=== PATIENT | male | born 1980 | race African-American/Black ===

== ENCOUNTER 2020-05-16 09:34 | Outpatient (REF) | payer OTHER, SELFPAY ==
--- NOTE | 2020-05-16 09:30 | EMG_ITS ---
Left median and ulnar motor and sensory studies were performed. Left radial sensory study was performed and paraspinal muscles were tested. IMPRESSION: 1. [id number] left median neuropathy across carpal tunnel. 2. Mild left ulnar neuropathy across cubital tunnel. MD MONI Gilbert/SOFY / [phone]
== END 2020-05-16 09:35 | disposition home or self-care (01) ==
LOC: HO.NEURO 09:34
PROVIDERS: Visit Provider Physician Assistant
DX: R20.2 Paresthesia of skin (principal)
CPT/HCPCS: 95886; 95909

== ENCOUNTER 2020-05-16 10:16 | Outpatient (REF) | payer OTHER, SELFPAY ==
[2020-05-16 10:39] LABS: MANUAL DIFF FLAG NO
[2020-05-16 10:44] LABS: Basophils Percent Auto 1.1 % (0-2); Eosinophils Absolute Auto 0.1 X10*3/uL (0.0-0.4); Eosinophils Percent Auto 2.2 % (0-4); Hematocrit 46.6 % (42-52); Hemoglobin 14.9 g/dl (14.0-18.0); Imm Gran Abs Auto 0.01 X10*3/uL (0.00-0.03); Imm Gran Pct Auto 0.3 % (0.0-0.4); Lymphocytes Absolute Auto 1.4 X10*3/uL (1.2-4.9); Lymphocytes Percent Auto 37.5 % (20-40); Mean Corpuscular Hemoglobin 26.3 pg (27.0-33.0); Mean Corpuscular Volume 82.2 fL (80-98); Mean Platelet Volume 8.6 fL (9.4-12.4); Monocytes Absolute Auto 0.4 X10*3/uL (0.1-1.2); Neutrophils Absolute Auto 1.8 X10*3/uL (2.0-8.3); Neutrophils Percent Auto 48.9 % (45-73); Platelet Count 303 X10*3/uL (160-400); Red Blood Count 5.67 X10*6/uL (4.60-5.80); Red Cell Distribution Width 14.7 % (11.0-16.0); White Blood Count 3.6 X10*3/uL (4.8-10.8)
[2020-05-16 10:53] LABS: Estimated Average Glucose 111 mg/dL; Hemoglobin A1c % 5.5 %
[2020-05-16 11:11] LABS: Alanine Aminotransferase 69 U/L (0-40); Albumin Level 4.5 g/dL (3.5-5.0); Alkaline Phosphatase 70 U/L (39-117); Anion Gap 13 (12-20); Aspartate Amino Transferase 38 U/L (5-37); Bilirubin Total 0.6 mg/dL (0.0-1.0); Blood Urea Nitrogen 11 mg/dL (9-16); Calcium 9.2 mg/dL (8.4-10.2); Carbon Dioxide 29 mmol/L (22-29); Chloride 103 mmol/L (96-108); Estimated Glomerular Filt Rate > 60; Glucose Fasting 86 mg/dL (60-99); Potassium 4.5 mmol/l (3.3-5.1); Sodium 140 mmol/L (135-145); Total Protein 6.9 g/dL (6.5-8.0)
== END 2020-05-16 10:17 | disposition home or self-care (01) ==
LOC: HO.LAB 10:16
PROVIDERS: PCP Physician Assistant; Visit Provider Physician Assistant
DX: I10 Essential (primary) hypertension (principal); Z13.1 Encounter for screening for diabetes mellitus; R20.2 Paresthesia of skin
CPT/HCPCS: 36415; 80053; 83036; 85025

== ENCOUNTER → 2020-06-12 10:45 | Outpatient (BNVA) | payer OTHER, SELFPAY | PROVIDERS: Visit Provider Physician Assistant | DX: G56.12 Other lesions of median nerve, left upper limb (principal); G56.02 Carpal tunnel syndrome, left upper limb | CPT/HCPCS: 99202 ==

== ENCOUNTER 2020-06-20 12:57 | Outpatient (RCR) | payer MEDICAID, SELFPAY ==
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
== END 2020-07-30 11:34 | disposition other institution (70) ==
LOC: HO.OT 12:57
PROVIDERS: PCP Physician Assistant; Visit Provider Physician Assistant
DX: G56.02 Carpal tunnel syndrome, left upper limb (principal); G56.12 Other lesions of median nerve, left upper limb
CPT/HCPCS: 97033; 97110; 97166

== ENCOUNTER 2022-03-11 09:22 | Outpatient (REF) | payer OTHER, SELFPAY ==
--- NOTE | ~2022-03-11 | XR_ITS ---
EXAMINATION: XR ABDOMEN KUB CLINICAL INDICATION: Unremarkable. COMPARISON: None TECHNIQUE: AP view of the abdomen. FINDINGS: There is scattered gas and stool seen in colon without significant distention. The small bowel loops are normal caliber. There is no organomegaly. No radiopaque renal calculi seen. No gross bony abnormality seen. XR/XR abdomen 1V IMPRESSION: Mild constipation. No acute process.
[2022-03-11 10:44] LABS: Cholesterol 206 mg/dL; HDL Cholesterol 58 mg/dL; LDL Cholesterol Calculated 135 mg/dl; TSH reflex Free T4 0.89 uIU/mL (0.32-4.0); Triglycerides 65 mg/dL
== END 2022-03-11 09:23 | disposition home or self-care (01) ==
LOC: HO.XRAY 09:22
PROVIDERS: PCP Physician Assistant; Visit Provider Physician Assistant
DX: Z13.220 Encounter for screening for lipoid disorders (principal); Z13.29 Encounter for screening for other suspected endocrine disorder
CPT/HCPCS: 36415; 74018; 80061; 84443

== ENCOUNTER 2023-02-10 10:23 | Outpatient (AMB) | payer MEDICARE, MEDICAID, SELFPAY ==
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
[2023-02-10 10:35] VITALS: BP 140/76; PULSE 70; RESP 16; O2SAT 97; BMI 27.0
== END 2023-02-10 11:18 | disposition home or self-care (01) ==
PROVIDERS: Visit Provider Physician Assistant
DX: Z23 Encounter for immunization (principal)
CPT/HCPCS: 90471; 90686; 99396

== ENCOUNTER 2023-06-30 08:35 | Outpatient (AMB) | payer MEDICARE, MEDICAID, SELFPAY ==
[2023-06-30 08:38] VITALS: BMI 27.0
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
== END 2023-06-30 09:13 | disposition home or self-care (01) ==
PROVIDERS: PCP Physician Assistant; Visit Provider Orthopaedic Surgery
DX: G56.02 Carpal tunnel syndrome, left upper limb (principal); G56.22 Lesion of ulnar nerve, left upper limb; Z89.201 Acquired absence of right upper limb, unspecified level
CPT/HCPCS: 99213

== ENCOUNTER → 2023-06-30 08:35 | Outpatient (BNVA) | payer MEDICARE, MEDICAID, SELFPAY | PROVIDERS: PCP Physician Assistant; Visit Provider Orthopaedic Surgery | DX: G56.02 Carpal tunnel syndrome, left upper limb (principal); R20.0 Anesthesia of skin; Z89.201 Acquired absence of right upper limb, unspecified level | CPT/HCPCS: 99212 ==

== ENCOUNTER 2023-07-22 09:48 | Outpatient (AMB) | payer MEDICARE, MEDICAID, SELFPAY ==
[2023-07-22 10:13] VITALS: BP 120/70; PULSE 65; O2SAT 99; BMI 28.5
--- NOTE | 2023-07-22 10:13 | A.OFFPC_ITS ---
Vital Signs 07/22/23 10:13 Height 5 ft 10.87 in Weight 203 lb 8 oz BMI 28.5 BP 120/70 Blood Pressure Location Lt brachial Position Sitting Pulse 65 Pulse Source Pulse Oximeter Pulse Oximetry (%) 99 Oxygen Delivery Method Room Air Intake Visit Reasons: bladder pain for the past three wks Intake Note: The patient has been experiencing right lower quadrant pain intermittently for the past two weeks. Area Secretary Required: Yes Area Secretary Language: Micronesian Accompanied by: Self / Same As Patient Allergies No Known Allergies Allergy (Verified 02/10/23 11:00) Medication List - Last Reconciled 07/22/23 by Kayode Suresh PA-C amitriptyline 50 mg PO BEDTIME diclofenac sodium 50 mg PO BID PRN 15 days gabapentin 800 mg PO TID 30 days sertraline 100 mg PO DAILY tizanidine 2 mg PO BID PRN trazodone 75 - 150 mg PO BEDTIME PRN Tobacco use date assessed: 07/22/23 Dental Screening Dental Screen Date: 07/22/23 Did you have a dental visit in the last 12 months?: No Did you have a dental problem in the last 6 months where you did not have access to dental care?: No Was dental information given to patient?: Patient has dentist HPI bladder pain for the past three wks HPI Details Patient is a 42-year-old male here today for problem visit. He has been experiencing left lower quadrant abdominal pain over the last 2 weeks. He denies any nausea, vomiting, diarrhea, fevers or constant abdominal pain.. He does admit to some constipation as of late. Has not tried any dgfz-qlc-fvlygcg constipation medication. FORMERLY [facility], [facility] Medical History (Updated 07/22/23 @ 10:28 by Kayode Suresh PA-C) Polyarthralgia Elevated liver enzymes Surgical History History of surgery on arm Family History Father Heart disease (organic) Mother No problems noted. Social History Housing: House Alcohol intake: never Patient Tobacco Use Status: Never used Tobacco Tobacco use type: Cigarette e-Cigarette/Vaping Use: Never Used Second Hand Smoke Exposure: No service: No Current occupational status: unemployed and disabled Cognitive needs: No Hearing needs: No Vision needs: No Questionnaire PHQ-9 Over the last 2 weeks, how often have you been bothered by any of the following problems? 1. Little interest or pleasure in doing things: not at all 2. Feeling down, depressed, or hopeless: not at all 3. Trouble falling or staying asleep, or sleeping too much: not at all 4. Feeling tired or having little energy: not at all 5. Poor appetite or overeating: not at all 6. Feeling bad about yourself - or that you are a failure or have let yourself or your family down: not at all 7. Trouble concentrating on things, such as reading the newspaper or watching television: not at all 8. Moving or speaking so slowly that other people could have noticed. Or the opposite - being so fidgety or restless that you have been moving around a lot more than usual: not at all 9. Thoughts that you would be better off or of hurting yourself in some way: not at all Total score: 0 Depression Screening Interpretation: Negative Depression Screening Done: Yes 88767 - PHQ-9 Billing: Yes Source: Developed by Drs. Jin Lopez, Blaire Villatoro, Jarret Mendes and colleagues, with an educational edilson from [email or web address]. Thrive Questionnaire Date Thrive assessed: 07/22/23 I am a: Patient What is your living situation today?: I have a steady place to live Within the past 12 months, did the food you bought not last and you didn't have the money to get more?: Never true Within the past 12 months, did you worry whether your food would run out before you got money to buy more?: Never true Do you have trouble paying for medicines?: No Do you have trouble getting transportation to medical appointments?: No Do you have trouble paying your heating and electricity bill?: No Do you have trouble taking care of your child, family member or friend?: No Do you have trouble with day-to-day activities such as bathing, preparing meals, shopping, managing finances, etc.?: No Are you currently unemployed and looking for a job?: No Are you interested in more education?: No Please select the resources that you would like help with: None Currently or been in a relationship where the following occur: no concerns reported THRIVE Score: 0 AUDIT C Alcohol Use Questionnaire (AUDIT-C) 1. How often do you have a drink containing alcohol?: Never 3. How often do you have six or more drinks on one occasion?: Never Total Score: 0 DANGELO-7 AMB Questionnaire DANGELO-7 Date DANGELO - 7 assessed: 07/22/23 Feeling nervous, anxious, or on edge: 0 = Not at all Not being able to stop or control worryin = Not at all Worrying too much about different things: 0 = Not at all Trouble relaxin = Not at all Being so restless that it is hard to sit still: 0 = Not at all Becoming easily annoyed or irritable: 0 = Not at all Feeling afraid as if something awful might happen: 0 = Not at all Total DANGELO-7 score (0-4 normal; 5-9 mild; 10-14 moderate; 15-21 severe): 0 Source: Developed by Drs. Jin Lopez, Blaire Villatoro, Jarret Mendes and colleagues, with an educational edilson from [email or web address]. DANGELO-7 Assessment Billing DANGELO-7 Assessment Tool: DANGELO-7 Assessment 67924 Review of Systems Const Denies headache(s) Eyes Denies loss of vision ENT Denies vertigo, Denies dizziness, Denies headache(s) and Denies sore throat Card Denies chest pain, Denies leg edema and Denies lightheadedness Resp Denies cough, Denies hemoptysis and Denies wheezing GI Reports abdominal pain, Denies melena, Reports constipation, Denies diarrhea and Denies vomiting Denies dysuria, Denies urinary frequency and Denies urinary urgency Musc Denies arthralgias, Denies joint swelling, Denies numbness and Denies tingling Neuro Denies Abnormal speech present, Denies behavioral changes, Denies vertigo, Denies dizziness, Denies headache(s), Denies loss of vision, Denies memory loss, Denies numbness and Denies tingling Psych Denies anxiety, Denies behavioral changes, Denies depression, Denies memory loss and Denies panic attacks Yusuf/Lymph Denies easy bleeding and Denies easy bruising Aller/Immun Denies wheezing Physical exam (Primary Care) Vital Signs: Last Vital Signs Pulse 65 07/22/23 10:13 BP 120/70 07/22/23 10:13 Pulse Ox 99 07/22/23 10:13 Oxygen Delivery Method Room Air 07/22/23 10:13 BMI result Body Mass Index 28.5 Tobacco/Smoking Status: Tobacco use Status Tobacco use date assessed 02/04/22 07/22/23 10:13 Patient Tobacco Use Status Never used Tobacco 07/22/23 10:13 Tobacco use type Cigarette 07/22/23 10:13 e-Cigarette/Vaping Use Never Used 07/22/23 10:13 Depression Screening Interpretation: Negative Thrive Assessment: Date of Thrive Assessment Date Thrive assessed 02/10/23 07/22/23 10:13 Currently or been in a relationship where the following occur: no concerns reported Const General: healthy appearing, no acute distress, alert and awake Nutritional Appearance: well nourished Orientation/consciousness: oriented to person, oriented to place and oriented to time HENMT Ears: TM's normal bilaterally General nose exam: Normal nasal mucous membranes and turbinates present Eyes Conjunctivae: conjunctivae normal Sclerae: sclerae normal Pupils: Equal, round and reactive pupils present Neck Neck: Yes no lymphadenopathy and Yes no JVD Thyroid: Thyroid normal Carotids: no bruits Resp Effort & Inspection: normal respiratory effort and not tachypneic Auscultation: no crackles, no rales, no rhonchi and no wheezes Cardio Rate: regular rate Rhythm: regular rhythm Heart sounds: no murmurs and normal S1 and S2 GI Palpation (GI): Soft to palpation, nontender, no hepatomegaly and no splenomegaly Auscultation: normal bowel sounds Skin General skin exam: no rashes or lesions noted and dry skin Neuro General: oriented to person, oriented to place and oriented to time Cranial nerves: Yes Equal, round and reactive pupils present Speech: No Abnormal speech present Gait exam (Neuro): Normal gait present Motor exam (neuro): no tremor noted Extrem Right upper extremity: full ROM Left upper extremity: full ROM Right lower extremity: full ROM; no edema Left lower extremity: full ROM; no edema Psych Mental Status: mental status grossly normal Speech and movement: Normal speech and movement present Affect: normal affect Attitude: cooperative Thought process: Normal thought process present Assessment and Plan Assessment & Plan (1) RLQ abdominal pain: Code(s): R10.31 - Right lower quadrant pain Plan: Patient reports a 2 week history of intermittent right lower abdominal pain. Physical exam without any abdominal guarding or pain to deep palpation. Will send for ultrasound of the right lower quadrant to evaluate for appendicitis. He does report having some constipation and will set him up with powder MiraLax to use over the next 2 weeks. Advised to increase fluid intake. Orders: Orders Lipid Panel Today E78.9 - Disorder of lipoprotein metabolism, unspecified, Z13.1 - Encounter for screening for diabetes mellitus Comprehensive Beatrice. Panel Fast Today E78.9 - Disorder of lipoprotein metabolism, unspecified, Z13.1 - Encounter for screening for diabetes mellitus US appendix Today R10.31 - Right lower quadrant pain Medications: New polyethylene glycol 3350 (Miralax) Makes 17 g packet in to 8 oz of water and drink daily 17 grams PO DAILY 14 days 14 ea 0RF Constipation R10.31 - Right lower quadrant pain Coding Level of Care Code Est Pt Level 3 (07260) Diagnoses RLQ abdominal pain R10.31 Additional Codes DANGELO-7 Assessment Billing - DANGELO-7 Assessment Tool: DANGELO-7 Assessment 01226 ([id number])
== END 2023-07-22 10:38 | disposition home or self-care (01) ==
PROVIDERS: PCP Physician Assistant; Visit Provider Physician Assistant
DX: R10.31 Right lower quadrant pain (principal)
CPT/HCPCS: 99213

== ENCOUNTER 2023-07-23 13:40 | Outpatient (REF) | payer MEDICARE, MEDICAID, SELFPAY ==
--- NOTE | ~2023-07-23 | US_ITS ---
STUDY: Right lower quadrant ultrasound. INDICATION: Right lower quadrant pain. COMPARISON: None TECHNIQUE: Real-time ultrasound was used to scan the right lower quadrant and permanent documented images obtained. FINDINGS: No blind ending, tubular fluid-filled noncompressible structure identified in the right lower quadrant. No free fluid or fluid collections. US/US appendix IMPRESSION: No sonographic evidence of acute appendicitis. Absence of findings does not exclude that entity. If there is a persistent clinical concern, consider cross-sectional imaging such as CT.
== END 2023-07-23 13:41 | disposition home or self-care (01) ==
LOC: HO.US 13:40
PROVIDERS: PCP Physician Assistant; Visit Provider Physician Assistant
DX: R10.31 Right lower quadrant pain (principal)
CPT/HCPCS: 76705

== ENCOUNTER 2023-08-11 09:58 | Outpatient (AMB) | payer MEDICARE, MEDICAID, SELFPAY ==
[2023-08-11 10:17] VITALS: BMI 28.4
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
== END 2023-08-11 11:01 | disposition home or self-care (01) ==
PROVIDERS: PCP Physician Assistant; Visit Provider Orthopaedic Surgery
DX: G56.02 Carpal tunnel syndrome, left upper limb (principal); G56.22 Lesion of ulnar nerve, left upper limb; Z89.201 Acquired absence of right upper limb, unspecified level
CPT/HCPCS: 99214

== ENCOUNTER → 2023-08-11 09:58 | Outpatient (BNVA) | payer MEDICARE, MEDICAID, SELFPAY | PROVIDERS: PCP Physician Assistant; Visit Provider Orthopaedic Surgery | DX: G56.02 Carpal tunnel syndrome, left upper limb (principal); G56.22 Lesion of ulnar nerve, left upper limb; Z89.201 Acquired absence of right upper limb, unspecified level | CPT/HCPCS: 99212 ==

== ENCOUNTER 2023-11-22 10:11 | Day surgery (SDC) | payer MEDICARE, MEDICAID, SELFPAY ==
[2023-11-22 10:53] VITALS: BMI 26.8
--- NOTE | 2023-11-22 12:35 | MHC.SHP ---
Pre-Procedural Eval Section A - 24 Hr Update-Section A only Date of Service: 11/22/23 The patient is an INPATIENT: No Changes since office visit: No Cold of Flu in the past 2 weeks, No New Medical Problems, No Changes in Medication and No Patient answered all questions The patient has been examined within 24 hours of the surgical procedure. The History & Physical has been completed within 30 days and I have reviewed it.: Yes Section B - Complete if H&P > 30 days Chief Complaint: Carpal tunnel syndrome, left upper limb Allergies: Allergies Allergy/AdvReac Type Severity Reaction Status Date / Time No Known Allergies Allergy Verified 11/22/23 10:54 Exam Exam Comment: Left carpal tunnel syndrome for left carpal tunnel release Patient reports that he started to have more numbness and tingling in the small finger, but perhaps 4 times a week. I educated him about cubital tunnel syndrome again. He understands that if this worsens he may in the future benefit from a left cubital tunnel release. Plan Diagnosis/Plan: Unchanged I have reviewed the history and physical and performed a pertinent physical examination on my patient. No changes have occurred unless specified. Time Spent With Patient Time: Total time managing care of this patient today ____ minutes.
--- NOTE | 2023-11-22 12:36 | P.OP_ITS ---
Operative Note Operative Note Date of Service: 11/22/23 Narrative: Preop diagnosis: 1. Left Carpal tunnel syndrome Postop diagnosis: same Procedure: 1. Left Carpal tunnel release Surgeon: Bailey Peterson MD Social Worker Psychiatric: None Anesthesia: local block using 1% lidocaine with epinephrine Findings: Thickened transverse carpal ligament. EBL: Less than 5 mL Specimens: None Complications: None Disposition: Brought to recovery room in stable condition Plan: Follow-up for 10-14 days for wound check and suture removal The patient is a high right upper extremity amputee. He says that he has plenty of help at home. Indications: The patient is 43 years old, with left carpal tunnel syndrome that has been unresponsive to nonoperative management. The risks and benefits of operative treatment including but not limited to risk of damage to blood vessels, nerves, tendons, infection, persistent pain, persistent symptoms, or possible need for additional surgery were discussed with the patient and the patient wishes to proceed with surgery. Procedure: Once consent was obtained a local block was performed using a combination of 1% lidocaine with epinephrine. The patient was then brought back to the operating suite and placed on the operative table in supine position. The left upper extremity was prepped and draped in a standard surgical fashion. Once assured that we had a good block, a 2.0 cm longitudinal incision was made centered over the carpal tunnel. The incision was made through the skin to the subcutaneous tissues using a #15 blade. Dissection was made down to the level of the transverse carpal ligament with care being taken to protect the palmar cutaneous nerve. Once the transverse carpal ligament was clearly visualized, a longitudinal incision was made in the transverse carpal ligament 1st using a #15 blade, then using tenotomy scissors under direct visualization. Care was taken to look for and protect the motor branch of the median nerve when seen in this area. Once satisfied with our carpal tunnel release the wound was copiously irrigated with normal saline and hemostasis was obtained with a brief period of local pressure. The skin edges were reapproximated with some 5.0 nylon suture material and a sterile dressing was applied. The patient appears to have tolerated the procedure well and with no complications. All digits were well vascularized at the conclusion of the case.
[2023-11-22 13:42] VITALS: BP 156/73
== END 2023-11-22 13:43 | disposition home or self-care (01) ==
PROVIDERS: PCP Physician Assistant; Visit Provider Orthopaedic Surgery
PROC: (CPT 64721; principal; 2023-11-22 11:30)
DX: G56.02 Carpal tunnel syndrome, left upper limb (principal); M25.50 Pain in unspecified joint; R74.8 Abnormal levels of other serum enzymes; Z89.221 Acquired absence of right upper limb above elbow; Z87.828 Personal history of other (healed) physical injury and trauma; Z98.890 Other specified postprocedural states; Z56.0 Unemployment, unspecified
CPT/HCPCS: 64721; J0171

== ENCOUNTER → 2023-11-22 10:11 | Outpatient (BNV) | payer MEDICARE, MEDICAID, SELFPAY | PROVIDERS: PCP Physician Assistant; Visit Provider Orthopaedic Surgery | DX: G56.02 Carpal tunnel syndrome, left upper limb (principal) | CPT/HCPCS: 64721 ==

== ENCOUNTER 2023-12-08 12:13 | Outpatient (AMB) | payer MEDICARE, MEDICAID, SELFPAY ==
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
== END 2023-12-08 13:07 | disposition home or self-care (01) ==
PROVIDERS: PCP Physician Assistant; Visit Provider Orthopaedic Surgery
DX: G56.02 Carpal tunnel syndrome, left upper limb (principal); G56.22 Lesion of ulnar nerve, left upper limb; Z89.201 Acquired absence of right upper limb, unspecified level
CPT/HCPCS: 99024

== ENCOUNTER → 2023-12-08 12:13 | Outpatient (BNVA) | payer MEDICARE, MEDICAID, SELFPAY | PROVIDERS: PCP Physician Assistant; Visit Provider Orthopaedic Surgery | DX: Z48.811 Encounter for surgical aftercare following surgery on the nervous system (principal); Z86.69 Personal history of other diseases of the nervous system and sense organs; Z89.201 Acquired absence of right upper limb, unspecified level | CPT/HCPCS: 99212 ==

== ENCOUNTER 2024-02-15 10:36 | Outpatient (AMB) | payer MEDICARE, MEDICAID, SELFPAY ==
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
[2024-02-15 10:43] VITALS: BP 140/80; PULSE 71; O2SAT 99; BMI 26.8
== END 2024-02-15 11:19 | disposition home or self-care (01) ==
LOC: HO.HMCH 10:37
PROVIDERS: PCP Physician Assistant; Visit Provider Physician Assistant
DX: Z00.00 Encounter for general adult medical examination without abnormal findings (principal); G54.6 Phantom limb syndrome with pain; F33.0 Major depressive disorder, recurrent, mild; G56.22 Lesion of ulnar nerve, left upper limb; E78.9 Disorder of lipoprotein metabolism, unspecified; F41.1 Generalized anxiety disorder; R21 Rash and other nonspecific skin eruption; Z89.201 Acquired absence of right upper limb, unspecified level

== ENCOUNTER → 2024-02-15 10:36 | Outpatient (BNVA) | payer MEDICARE, MEDICAID, SELFPAY | PROVIDERS: PCP Physician Assistant; Visit Provider Physician Assistant | DX: Z00.01 Encounter for general adult medical examination with abnormal findings (principal); Z23 Encounter for immunization; R21 Rash and other nonspecific skin eruption; G54.6 Phantom limb syndrome with pain; F33.0 Major depressive disorder, recurrent, mild; G56.22 Lesion of ulnar nerve, left upper limb; E78.9 Disorder of lipoprotein metabolism, unspecified; F41.1 Generalized anxiety disorder; Z89.201 Acquired absence of right upper limb, unspecified level | CPT/HCPCS: 90471; 90656; 96127; 99396 ==

== ENCOUNTER 2025-02-15 09:50 | Outpatient (REF) | payer MEDICARE, MEDICAID, SELFPAY ==
[2025-02-15 13:08] LABS: Hematocrit 44.8 % (42.0-52.0); Hemoglobin 14.4 g/dl (14.0-18.0); Mean Corpuscular HGB Conc 32.1 g/dl (31.0-36.0); Mean Corpuscular Hemoglobin 26.3 pg (27.0-33.0); Mean Corpuscular Volume 81.9 fL (80.0-98.0); NRBC Abs Auto 0.000 X10*3/uL (0.0-0.012); NRBC Pct Auto 0.0 /100WBC (0.0-0.2); Platelet Count 278 X10*3/uL (160-400); Red Blood Count 5.47 X10*6/uL (4.60-5.80); White Blood Count 4.4 X10*3/uL (4.8-10.8)
[2025-02-15 13:43] LABS: Alanine Aminotransferase 35 U/L (0-40); Albumin Level 4.8 g/dL (3.5-5.0); Alkaline Phosphatase 69 U/L (39-117); Anion Gap 11 (12-20); Aspartate Amino Transferase 29 U/L (5-37); Blood Urea Nitrogen 19 mg/dL (9-16); Calcium 9.4 mg/dL (8.4-10.2); Carbon Dioxide 27 mmol/L (22-29); Chloride 107 mmol/L (96-108); Cholesterol 224 mg/dL (<200); Estimated Glomerular Filt Rate > 60; HDL Cholesterol 62 mg/dL (>40); Potassium 4.1 mmol/L (3.3-5.1); Sodium 141 mmol/L (135-145); Total Protein 7.1 g/dL (6.5-8.0); Triglycerides 77 mg/dL (<150)
--- OUTSIDE RECORDS SUMMARY | 2025-02-15 14:58 | XMS_ITS | Clinical Summary ---
Author Organization [facility] [place] [address] Care Team Providers Care Research Attorney Name Role Phone Unavailable Primary Care Provider Unavailabl e Social History Tobacco Use Types Packs/Day Years Used Date Smoking Tobacco: Never Assessed Sex and Gender Information Value Date Recorded Sex Assigned at Not on file Legal Sex Male 12:19 AM EST Gender Identity Not on file Sexual Orientation Not on file Plan of Treatment Health Maintenance Due Date Last Done Comments DTaP,Tdap,and Td Vaccines (1 - Tdap) 08/12/1999 Hepatitis B Vaccines (1 of 3 - 19+ 3-dose series) 08/12/1999 HPV Vaccines (1 - 3-dose SCD M series) 08/12/2007 Cholesterol Screening (Lipid Panel) 01/27/2024 HIV Screening 01/27/2024 Hepatitis C Screening 01/27/2024 Social Influencers of Health Screening 01/27/2024 Depression Screening 04/19/2024 COVID-19 Vaccine ( - 2023-2 5 season) 2024 Influenza Vaccine (#1) 2024 RSV Immunization Adult Patie nts (1 - 1-dose 75+ series) 08/12/2055 HIB Vaccines Aged Out No longer eligi ble based on patient's age to complete this topic Hepatitis A Vaccines Aged Out No long er eligible based on patient's age to complete this topic IPV Vaccines Aged Out No longer eligi ble based on patient's age to complete this topic MMR Vaccines Aged Out No longer eligi ble based on patient's age to complete this topic Meningococcal ACWY Vaccine Aged Out N o longer eligible based on patient's age to complete this topic Meningococcal B Vaccine Aged Out No l onger eligible based on patient's age to complete this topic Pneumococcal Vaccine: Pediat rics (0 to 5 Years) and At-Risk Patients (6 to 49 Years) Aged Out No longer eligible b ased on patient's age to complete this topic RSV Immunization Patients Un jeet 20 months Aged Out No longer eligible b ased on patient's age to complete this topic Varicella Vaccines Aged Out No longer eligible based on patient's age to complete this topic
== END 2025-02-15 09:51 | disposition home or self-care (01) ==
LOC: HO.LAB 09:50
PROVIDERS: PCP Physician Assistant; Visit Provider Physician Assistant
DX: Z00.00 Encounter for general adult medical examination without abnormal findings (principal); Z23 Encounter for immunization; F33.0 Major depressive disorder, recurrent, mild; F41.1 Generalized anxiety disorder; E78.9 Disorder of lipoprotein metabolism, unspecified; G54.6 Phantom limb syndrome with pain; S46.811D Strain of other muscles, fascia and tendons at shoulder and upper arm level, right arm, subsequent encounter; Z79.899 Other long term (current) drug therapy
CPT/HCPCS: 36415; 80053; 80061; 85027; 90471; 90656; 96127; 99396

== ENCOUNTER 2025-02-15 09:50 | Outpatient (AMB) | payer MEDICARE, MEDICAID, SELFPAY ==
[2025-02-15 10:07] VITALS: BP 104/80; PULSE 66; O2SAT 98; BMI 25.4
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
--- OUTSIDE RECORDS SUMMARY | 2025-02-15 11:35 | XMS_ITS | Clinical Summary ---
Author Organization [facility] Address [address] [place] [address] Care Team Providers Care Powertrain Control Systems Engineer Name Role Phone Radha Arriaga MD Primary Care Provider [phone] Allergies No known active allergies Medications No known medications Social History Tobacco Use Types Packs/Day Years Used Date Smoking Tobacco: Never Alcohol Use Standard Drinks/Week Comments Not Asked 0 (1 standard drink = 0.6 oz pur e alcohol) Sex Assigned at Date Recorded Not on file Last Filed Vital Signs Vital Sign Reading Time Taken Comments Blood Pressure 112/65 05/15/2015 10:28 AM EST Pulse 70 05/15/2015 10:28 AM EST Temperature 36.9 C (98.4 F) 05/15/2015 10:28 AM EST Respiratory Rate 16 05/15/2015 10:28 AM EST Oxygen Saturation - - Inhaled Oxygen Concentration - - Weight 93.7 kg (206 lb 8 oz) 05/15/2015 10:28 AM EST Height 180.3 cm (5' 11 ) 05/15/2015 10:28 AM EST Body Mass Index 28.8 05/15/2015 10:28 AM EST Plan of Treatment Health Maintenance Due Date Last Done Comments Covid-19 Vaccine (#1) 02/10/1981 TOBACCO CHECK/ADVISE 1998 DTAP/TDAP/TD (1 - Tdap) 08/12/1999 CHOLESTEROL SCREENING 2000 BASELINE HEALTH EXAM 40-64 2020 BMI CHECK/ADVISE 04/19/2024 INFLUENZA (#1) 2024 PNEUMOCOCCAL VACCINE FOR HIGH RISK PATIENTS (#1) 08/11 Care Teams Powertrain Control Systems Engineer Relationship Specialty Start Date End Date Radha Arriaga MD [address] [place] [id number] PCP - General Internal Medicine 05/21/15
--- OUTSIDE RECORDS SUMMARY | 2025-02-15 11:35 | XMS_ITS | Encounter Summary ---
Author Organization [facility] Address [address] [place] [address] Care Team Providers Care Psychometrist Name Role Phone [facility], Pcp Primary Care Provider Radha Armendariz MD Primary Care Provider [phone] Reason for Visit * Reason Onset Date Comments Follow-up Appt Unavailable 05/15/2015 Encounter Details Date Type Department Care Team Description 05/15/2015 Telephone Adult Medicine [facility] [address] [place] [address] [phone] Radha Mejia MD [address] [place] [address] [phone] Follow-up Appt Unavailable Social History Tobacco Use Types Packs/Day Years Used Date Smoking Tobacco: Never Alcohol Use Standard Drinks/Week Comments Not Asked 0 (1 standard drink = 0.6 oz pur e alcohol) Sex Assigned at Date Recorded Not on file documented as of this encounter Miscellaneous Notes * Telephone Encounter - Iesha Staton R.N. - 05/15/2015 12:10 PM EST Pt booked for 07/25 at 3:[address] mejia , message left for pt to call. he will need to confirm appointment or be rescheduled with triage. * Telephone Encounter - Essie Ravi - 05/15/2015 11:22 AM EST Follow up appointment not available. Please call patient to book-no open NON PUBLIC SLOTS. Appointment needed for a [address] Mejia. documented in this encounter Plan of Treatment Not on file documented as of this encounter Visit Diagnoses Not on filedocumented in this encounter Care Teams Psychometrist Relationship Specialty Start Date End Date Community, Pcp PCP - General Internal Medicine 05/15/15 05/20/15 Radha Mejia MD [address] [place] [id number] PCP - General Internal Medicine 05/21/15 documented as of this encounter
== END 2025-02-15 10:43 | disposition home or self-care (01) ==
LOC: HO.HMCH 09:51
PROVIDERS: PCP Physician Assistant; Visit Provider Physician Assistant
DX: Z00.00 Encounter for general adult medical examination without abnormal findings (principal); F33.0 Major depressive disorder, recurrent, mild; G54.6 Phantom limb syndrome with pain; F41.1 Generalized anxiety disorder; S46.811D Strain of other muscles, fascia and tendons at shoulder and upper arm level, right arm, subsequent encounter; Z23 Encounter for immunization